=== PATIENT | male | born 1995 | race American Indian/Alaskan Native ===

== ENCOUNTER 2017-11-14 21:28 | Emergency (ER) | payer SELFPAY | END 2017-11-14 21:29 | disposition left against medical advice (07) | LOC: ED 21:28 | DX: R07.9 Chest pain, unspecified (principal); M54.9 Dorsalgia, unspecified; M79.603 Pain in arm, unspecified; Z53.21 Procedure and treatment not carried out due to patient leaving prior to being seen by health care provider ==